=== PATIENT | male | born 1970 | race African-American/Black ===

== ENCOUNTER 2021-09-29 11:55 | Emergency (ER) | payer MEDICAID ==
[~2021-09-29] VITALS: Ht 172.7 cm; Wt 73.0 kg
[2021-09-29 14:06] VITALS: BP 137/97
[2021-09-29] MEDS ORDERED: LORAZEPAM 0.5MG TABLET PO ONE (14:30)
[2021-09-29] MEDS ORDERED: LORA-249 MT (15:32)
== END 2021-09-29 15:44 | disposition home or self-care (01) ==
LOC: ER 11:55
DX: G47.00 Insomnia, unspecified (principal); F41.9 Anxiety disorder, unspecified; E78.00 Pure hypercholesterolemia, unspecified; F43.10 Post-traumatic stress disorder, unspecified
CPT/HCPCS: 99283